=== PATIENT | male | born 1990 | race Caucasian/White ===

== ENCOUNTER 2019-01-18 21:37 | Emergency (ER) | payer BC ==
--- NOTE | 2019-01-18 23:29 | ER Document Report ---
ED Medical Screen (RME) - General Chief Complaint: Difficulty Swallowing Stated Complaint: SWOLLEN THROAT Time Seen by Provider: 01/18/19 23:27 Mode of Arrival: Ambulatory Information source: Patient Notes: Patient presents complaining of sore throat for the past 2 days with voice hoarseness and a sensation like his throat was swelling tonight. Patient denies any fever. Patient is able to manage oral secretions and tolerate oral fluids without difficulty. I have greeted and performed a rapid initial assessment of this patient. A comprehensive ED assessment and evaluation of the patient, analysis of test results and completion of the medical decision making process will be conducted by additional ED providers. TRAVEL OUTSIDE OF THE [place] IN LAST 30 DAYS: No - Related Data Allergies/Adverse Reactions: peanut Allergy (Verified 01/18/19 21:41) Physical Exam - Vital signs Vitals: Temp Pulse Resp BP Pulse Ox 98.0 F 65 16 141/82 H 100 01/18/19 21:43 01/18/19 21:43 01/18/19 21:43 01/18/19 21:43 01/18/19 21:43 - HEENT Mouth/Lips: Normal. No: Angioedema Pharynx: Erythema. No: Peritonsillar abscess, Tonsillar hypertrophy, Potential airway comprom. Course - Vital Signs Vital signs: Temp Pulse Resp BP Pulse Ox 98.0 F 65 16 141/82 H 100 01/18/19 21:43 01/18/19 21:43 01/18/19 21:43 01/18/19 21:43 01/18/19 21:43
[2019-01-18] MEDS ORDERED: IBUPROFEN 800 MG TABLET PO ONE (23:47)
[2019-01-18] MEDS ORDERED: DEXAMETHASONE 4 MG TABLET PO ONE (23:47)
--- NOTE | 2019-01-19 00:39 | ER Document Report ---
ED General - General Chief Complaint: Difficulty Swallowing Stated Complaint: SWOLLEN THROAT Time Seen by Provider: 01/18/19 23:27 Mode of Arrival: Ambulatory Notes: Patient is a 28-year-old male who presents with complaint of a sore throat and feeling as if his throat feels a bit swollen. Says he is able to breathe and swallow but just feels as if there is some restriction in doing so in the last couple hours. No fevers. His significant other also has similar symptoms this past week but has improved. No exposure to strep throat that he is aware of. Patient denies any vomiting. No diarrhea. No other complaints at this time. TRAVEL OUTSIDE OF THE [place] IN LAST 30 DAYS: No - Related Data Allergies/Adverse Reactions: peanut Allergy (Verified 01/18/19 21:41) Past Medical History - General Information source: Patient - Social History Smoking Status: Never Smoker Frequency of alcohol use: None Drug Abuse: None Family History: Reviewed & Not Pertinent Review of Systems - Review of Systems Notes: My Normal Review Basic REVIEW OF SYSTEMS: CONSTITUTIONAL : Denies fever, chills, or sweats. Denies recent illness. EENT: Sore throat RESPIRATORY: Denies cough, cold, or chest congestion. Denies shortness of breath, difficulty breathing, or wheezing. GASTROINTESTINAL: Denies abdominal pain. Denies nausea, vomiting, or diarrhea. MUSCULOSKELETAL: Denies neck or back pain or joint pain or swelling. SKIN: Denies rash or skin lesions. NEUROLOGICAL: Denies altered mental status or loss of consciousness. Denies headache. Denies weakness or paralysis or loss of use of either side. Denies problems with gait or speech. Denies sensory or motor loss. ALL OTHER SYSTEMS REVIEWED AND NEGATIVE. Physical Exam - Vital signs Vitals: Temp Pulse Resp BP Pulse Ox 98.0 F 65 16 141/82 H 100 01/18/19 21:43 01/18/19 21:43 01/18/19 21:43 01/18/19 21:43 01/18/19 21:43 - Notes Notes: General Appearance: Well nourished, alert, cooperative, no acute distress, no obvious discomfort. Well appearing. Vitals: reviewed, See vital signs table. Head: no swelling or tenderness to the head Eyes: PERRL, EOMI, Conjuctiva clear Mouth: No decreasd moisture Throat: No tonsillar inflammation, No airway obstruction, No lymphadenopathy Ears: Normal-appearing tympanic membranes bilaterally Neck: Supple, neck swelling. Full range of motion of neck without difficulty. No stridor with auscultation of the neck with deep breathing. Skin: warm, dry, appropriate color Neuro: speech clear, oriented x 3, normal affect, responds appropriately to questions. Course - Re-evaluation Re-evalutation: 01/19/19 06:41 Strep and mono were ordered in triage. These are negative. Patient looks well. He says since receiving the ibuprofen and steroids he feels much improved. His pharyngeal exam is pretty unremarkable. Suspect the most likely the problem is being that his sniffing other had similar symptoms last week. I encouraged him that low threshold to return to ER if he starts having difficulty breathing, difficulty swallowing, high fevers, or if he feels unwell. I informed him that the mono test likely is nonspecific or accurate being that he is only had symptoms for a few days and therefore I would expect to be positive. Currently his symptoms are not consistent with mono. Dictation of this chart was performed using voice recognition software; therefore, there may be some unintended grammatical errors. - Vital Signs Vital signs: Temp Pulse Resp BP Pulse Ox 98.0 F 63 16 127/85 H 98 01/18/19 21:43 01/19/19 01:58 01/19/19 01:58 01/19/19 01:58 01/19/19 01:58 Discharge - Discharge Clinical Impression: Sore throat Condition: Good Disposition: HOME, SELF-CARE Additional Instructions: Your strep test is negative. Please treat soreness in your throat with Tylenol 500 mg every 4 hours or ibuprofen 600 mg every 6 hours. Please return to ER immediately if you are having difficulty swallowing her saliva, difficulty breathing, fevers, or if you feel like you are worsening in any way.
[2019-01-19 01:59] VITALS: BP 127/85
== END 2019-01-19 01:58 | disposition home or self-care (01) ==
LOC: ER 21:37
DX: J02.9 Acute pharyngitis, unspecified (principal); Z91.010 Allergy to peanuts
CPT/HCPCS: 36415; 86308; 87070; 87880; 99284